=== PATIENT | male | born 1965 | race Caucasian/White ===

== ENCOUNTER 2020-03-20 23:47 | Emergency (ER) | payer OTHER ==
[2020-03-20] MEDS ORDERED: SODIUM CHLORIDE 1,000 ML IV STA (23:50)
--- NOTE | 2020-03-20 23:50 | PDOC ---
Rapid Medical Evaluation Time Seen by Provider: 03/20/20 23:48 Medical Evaluation: Allergies Allergy/AdvReac Type Severity Reaction Status Date / Time No Known Drug Allergies Allergy Verified 04/23/14 08:16 03/20/20 23:48 I performed a brief in-person evaluation of this patient. CC: Dizziness with elevated blood sugar at home; no history of diabetes PE: No focal deficits. Orders: Labs, urine, EKG, IV fluids Patient will proceed to the emergency department for further evaluation. Discharge Disposition - Diagnosis Dizziness - Referrals - Patient Instructions - Post Discharge Activity
[2020-03-21 00:09] VITALS: BMI 34.9
--- NOTE | 2020-03-21 00:27 | PDOC ---
History of Present Illness - General Chief Complaint: Blood Sugar Problem Stated Complaint: HYPERGLYCEMIC Time Seen by Provider: 03/20/20 23:48 History Source: Patient - History of Present Illness Initial Comments: 03/21/20 00:26 54M PMH chronic back pain s/p spinal implant presenting with an episode of mild epigastric discomfort, palpitations, and dizziness that started approximately 2- 3 hours prior to presentation. Friend at the time checked pt BP and BGM, found to be 160s systolic and 300s glc. Feeling better now. Denies changes in vision, new numbness, tingling, weakness. Denies cp/sob, f/c, n/v. Denies urinary frequency, polydipsia. NKDA. Past History - Medical History Allergies/Adverse Reactions: Allergies Allergy/AdvReac Type Severity Reaction Status Date / Time No Known Drug Allergies Allergy Verified 03/21/20 00:02 Home Medications: Ambulatory Orders Oxycodone HCl/Acetaminophen [Percocet 5-325 mg Tablet -] 1 - 2 tab PO Q6H #60 tab 04/23/14 Anemia: No Asthma: No Cancer: No Cardiac Disorders: No CVA: No COPD: No CHF: No Dementia: No Diabetes: No GI Disorders: No Disorders: Yes (KIDNEY STONES) HTN: No Hypercholesterolemia: No Liver Disease: No Seizures: No Thyroid Disease: No - Psycho-Social/Smoking History Smoking History: Never smoked Have you smoked in the past 12 months: No Information on smoking cessation initiated: No - Substance Abuse Hx (Audit-C & DAST Scrn) How often the patient has a drink containing alcohol: Never Score: In Men: 4 or > Positive; In Women: 3 or > Positive: 0 Screen Result (Pos requires Nsg. Audit-10AR): Negative In the last yr the pt used illegal drug/Rx for NonMed reason: No Score: Yes response is considered Positive: 0 Screen Result (Positive result requires Nsg. DAST-10): Negative Review of Systems - Review of Systems Comments:: 03/21/20 05:28 CONSTITUTIONAL: Denies F / C HEENT: endorses dizziness. Denies headache, changes in vision / hearing, diplopia, blurry vision, sore throat, rhinorrhea RESP: Denies SOB, cough CARD: +palpitations. Denies chest pain GI: +since resolved epigastric discomfort. Denies N / V / D, bloody stool, inability to tolerate PO : Denies dysuria, hematuria, frequency NEURO: Denies numbness, tingling, weakness MSK: Denies new back pain SKIN: Denies rashes *Physical Exam - Vital Signs Last Vital Signs Temp Pulse Resp BP Pulse Ox 98.0 F 92 H 20 120/71 97 03/21/20 00:02 03/21/20 00:02 03/21/20 00:02 03/21/20 00:02 03/21/20 00:02 - Physical Exam 03/21/20 05:28 GEN: Well appearing, NAD, comfortable. AAOx3. HEENT: NC/AT, CN II-XII intact, EOMI, PERRL. No facial asymmetry. Moist mucous membranes. Normal voice. Supple neck w/ FROM. CV: S1/S2, RRR, no m/r/g LUNG: CTAB, no wheezes, crackles, rales, rhonchi. GI: Soft, ndnt, +BS, no guarding, no rebound. No masses. MSK: No LE edema. No obvious deformities of all extremities. SKIN: Warm, dry, no rashes appreciated. PSYCH: Normal mood and affect. NEURO: Moving all extremities well. 5/5 UE and LE strength b/l. symmetric sensation. no FTN ataxia. ED Treatment Course - LABORATORY CBC & Chemistry Diagram: 03/21/20 00:40 03/21/20 00:40 - RADIOLOGY Radiology Studies Ordered: Category Date Time Status CXRPORT [CHEST X-RAY PORTABLE*] [RAD] Stat Radiology 03/21/20 00:26 Ordered Medical Decision Making - Medical Decision Making 03/21/20 05:29 54M presenting with epigastric discomfort, palpitations, and dizziness. d iscomfort and palpitations resolved; dizziness is improving. was found to be hyperglycemic. Neuro intact. - BGM 300s - CBC, CMP, Cardiac - EKG - CXR - Fluids - reassess 03/21/20 01:16 EKG 01:18 HR 88, NSR, intervals and axis wnl, no TWI, no IRA/D 03/21/20 01:35 CXR appears w/o obvious acute pathology; implant wire labs reviewed awaiting a1c 03/21/20 01:48 a1c 7.7% 03/21/20 02:04 pt sx resolved f/u UA 03/21/20 02:43 UA neg dc home w/ PCP f/u plan discussed w/ patient, questions and concerns addressed Discharge - Discharge Information Problems reviewed: Yes Clinical Impression/Diagnosis: Dizziness Condition: Stable Disposition: HOME - Admission No - Follow up/Referral Referrals: [facility] [place] [facility] [place] [Provider Group] - 24 hours () - Patient Discharge Instructions Patient Printed Discharge Instructions: DI for Hyperglycemia -- Adult Additional Instructions: Your HbA1c is 7.7% percent which is in the diabetic range. Follow up with a primary care doctor in the next 3-5 days. We are referring you to the [facility] for primary care if you need but you may use any office that takes your insurance. See the attached phone number to schedule an appointment. Maintain moderate exercise. Eat a healthy diet. Please return to the Emergency Department if you experience any new or worsening symptoms. - Post Discharge Activity Work/Back to School Note: Back to Work
--- NOTE | 2020-03-21 00:51 | PDOC ---
Attending Attestation - Resident Resident Name: Vini Gamez - ED Attending Attestation I have performed the following: I have examined & evaluated the patient, The case was reviewed & discussed with the resident, I agree w/resident's findings & plan, Exceptions are as noted - HPI HPI: 03/21/20 05:58 See resident HPI - Physicial Exam PE: 03/21/20 05:58 Agree with documented exam - Medical Decision Making 03/21/20 05:59 54M c/o lightheadedness, palpitations in context of hyperglycemia, no diagnosis of DM is not being followed or treated Denies recent polyuria, polydipsia Consider undiagnosed dm, less likely arrythmia, acs f/u labs, cxr, ekg ivf re-eval dispo per clinical course cxr unremarkable, ekg non-ischemic dc pcp f/u Discharge - Discharge Information Problems reviewed: Yes Clinical Impression/Diagnosis: Dizziness Condition: Stable Disposition: HOME - Follow up/Referral Referrals: [facility] [place] [facility] [place] [Provider Group] - 24 hours () - Patient Discharge Instructions Patient Printed Discharge Instructions: DI for Hyperglycemia -- Adult Additional Instructions: Your HbA1c is 7.7% percent which is in the diabetic range. Follow up with a primary care doctor in the next 3-5 days. We are referring you to the [facility] for primary care if you need but you may use any office that takes your insurance. See the attached phone number to schedule an appointment. Maintain moderate exercise. Eat a healthy diet. Please return to the Emergency Department if you experience any new or worsening symptoms. - Post Discharge Activity Work/Back to School Note: Back to Work
[2020-03-21 00:56] LABS: EOS % 2.6 % (0-4.5); HEMATOCRIT 47.3 % (35.4-49); HEMOGLOBIN 16.6 GM/dL (11.7-16.9); LYMPH % 32.2 % (8-40); MCH 30.8 pg (25.7-33.7); MEAN CELL VOLUME 88.1 fl (80-96); MEAN PLT VOLUME 8.7 fl (7.5-11.1); MONO % 9.5 % (3.8-10.2); NEUT % 54.7 % (42.8-82.8); PLATELET COUNT 164 K/MM3 (134-434); RBC 5.37 M/mm3 (4.00-5.60); RDW 13.2 % (11.9-15.9)
[2020-03-21 01:11] LABS: ALK PHOS 137 U/L (45-117); ANION GAP 5 MMOL/L (8-16); BILIRUBIN,TOTAL 0.4 mg/dL (0.2-1); BLOOD UREA NITROGEN 15.2 mg/dL (7-18); CALCIUM 8.5 mg/dL (8.5-10.1); CHLORIDE 102 mmol/L (98-107); CO2 29 mmol/L (21-32); CREATININE 1.3 mg/dL (0.55-1.3); GLUCOSE,RANDOM 354 mg/dL (74-106); POTASSIUM 4.2 mmol/L (3.5-5.1); SGOT/AST 33 U/L (15-37); SGPT/ALT 62 U/L (13-61); SODIUM 136 mmol/L (136-145); TOT PROT 7.2 g/dl (6.4-8.2)
[2020-03-21 02:38] LABS: URINE APPEARANCE CLEAR; URINE BILIRUBIN NEGATIVE (NEGATIVE); URINE COLOR YELLOW; URINE GLUCOSE (UA) 3+ (NEGATIVE); URINE KETONE NEGATIVE (NEGATIVE); URINE LEUK ESTERASE NEGATIVE (NEGATIVE); URINE NITRITE NEGATIVE (NEGATIVE); URINE PROTEIN NEGATIVE (NEGATIVE); URINE UROBILINOGEN 0.2 mg/dL (0.2-1.0)
[2020-03-21 03:17] VITALS: BP 154/107; PULSE 97; TEMP 97.8
--- NOTE | 2020-03-21 10:21 | EKG ---
Test Reason : Blood Pressure : / mmHG Vent. Rate : 088 BPM Atrial Rate : 088 BPM P-R Int : 170 ms QRS Dur : 094 ms QT Int : 362 ms P-R-T Axes : 057 077 049 degrees QTc Int : 438 ms NORMAL SINUS RHYTHM NORMAL ECG WHEN COMPARED WITH ECG OF 21-MAR-2020 01:18, NO SIGNIFICANT CHANGE WAS FOUND Confirmed by WYATT BRAMBILA MD ([id number]) on 03/21/2020 10:21:15 AM Referred By: Confirmed By:WYATT BRAMBILA MD
== END 2020-03-21 03:20 | disposition home or self-care (01) ==
LOC: JER 23:47
PROC: 3E0337Z Introduction of Electrolytic and Water Balance Substance into Peripheral Vein, Percutaneous Approach (ICD-10-PCS; principal; 2020-03-20)
DX: R42 Dizziness and giddiness (principal)
CPT/HCPCS: 36415; 71045-TC-FY; 80053; 81003; 82550; 82962; 83036; 84484; 85025; 87086; 93005; 93010; 99285-25